=== PATIENT | female | born 1965 | race African-American/Black ===

== ENCOUNTER 2024-07-20 19:19 | Emergency (ER) | payer SELFPAY ==
--- NOTE | 2024-07-20 20:38 | PC.NURSE ---
2019-Pat, administrative medical director notified 2027-[facility] notified
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
--- NOTE | 2024-07-20 22:38 | PC.NURSE ---
see code sheet.
--- NOTE | 2024-07-20 23:51 | PC.NURSE ---
Addendum entered by Luzmaria Rios RN 07/20/24 23:52: Pt remains a Mayte Poole. Original Note: 2345-[place] left with body.
== END 2024-07-21 01:28 | disposition expired ==
LOC: ANHED 07-21 01:03
PROVIDERS: Emergency Provider Student in an Organized Health Care Education/Training Program
DX: S82.891B Other fracture of right lower leg, initial encounter for open fracture type I or II (principal); S42.9 Fracture of shoulder girdle, part unspecified; S08.0XXA Avulsion of scalp, initial encounter; S27.1XXA Traumatic hemothorax, initial encounter; I46.8 Cardiac arrest due to other underlying condition; V03.90XA Pedestrian on foot injured in collision with car, pick-up truck or van, unspecified whether traffic or nontraffic accident, initial encounter
CPT/HCPCS: 31500; 32551; 36415; 36430; 36556; 86900; 86901; 86920; 92950; 96374; 96375; 99291; C1729; C1751; J0171; J7030; J7050; J7060; P9016